=== PATIENT | male | born 1975 | race Caucasian/White ===

== ENCOUNTER 2018-11-26 16:43 | Emergency (ER) | payer MEDICAID ==
[~2018-11-26] VITALS: Ht 165.1 cm; Wt 97.1 kg
[2018-11-26 17:23] VITALS: Ht 165.1 cm; Wt 97.1 kg
[2018-11-26 20:01] VITALS: BP 167/112
== END 2018-11-26 20:01 | disposition home or self-care (01) ==
LOC: ED 16:43
DX: K04.7 Periapical abscess without sinus (principal); F17.210 Nicotine dependence, cigarettes, uncomplicated; I10 Essential (primary) hypertension; E11.9 Type 2 diabetes mellitus without complications
CPT/HCPCS: J1885

== ENCOUNTER 2019-02-14 07:39 | Emergency (ER) | payer MEDICAID ==
[~2019-02-14] VITALS: Ht 165.1 cm; Wt 99.3 kg
[2019-02-14 07:50] VITALS: Ht 165.1 cm; Wt 99.3 kg
[2019-02-14 10:36] LABS: BASOPHIL % 0.2 % (0-2); PLATELET COUNT 382 x10^3mcL (130-400); RED CELL DISTRIBUTION WIDTH 12.7 % (11.5-14.5)
[2019-02-14 11:22] LABS: ALKALINE PHOSPHATASE 109 U/L (46-116); ALT/SGPT 18 U/L (16-63); AST/SGOT 9 U/L (15-37); BILIRUBIN TOTAL 0.5 mg/dL (0.20-1.00); CARBON DIOXIDE 28.3 mmol/L (21-32); CHLORIDE SERUM 94 mmol/L (98-107); CREATININE SERUM 0.9 mg/dL (0.7-1.3); GFR1 > 60 mL/min; HDL CHOLESTEROL 49 mg/dL (40-60); LIPASE 90 IU/L (73-393); POTASSIUM SERUM 3.5 mmol/L (3.5-5.1); SODIUM SERUM 130 mmol/L (136-145); TOTAL PROTEIN, SERUM 7.7 g/dL (6.4-8.2)
[2019-02-14 11:36] LABS: ALBUMIN 2.6 g/dL (3.4-5.0); CHOLESTEROL 96 mg/dL (<200); GLUCOSE SERUM 490 mg/dL (74-106)
[2019-02-14 12:42] LABS: UA SPECIFIC GRAVITY 1.015 (1.005-1.035)
[2019-02-14 12:49] LABS: microscopic required? YES
[2019-02-14 12:50] LABS: urine erythrocyte TRACE (NEGATIVE)
[2019-02-14 15:16] VITALS: BP 156/97
== END 2019-02-14 15:16 | disposition home or self-care (01) ==
LOC: ED 07:39
PROVIDERS: Emergency Medicine
DX: L02.11 Cutaneous abscess of neck (principal); E11.65 Type 2 diabetes mellitus with hyperglycemia; D72.829 Elevated white blood cell count, unspecified; E46 Unspecified protein-calorie malnutrition; Z68.36 Body mass index [BMI] 36.0-36.9, adult; I10 Essential (primary) hypertension; E66.01 Morbid (severe) obesity due to excess calories
CPT/HCPCS: 36600; 82962; J0295; J1815; J1885; J3490; J7030; Q0092

== ENCOUNTER 2020-05-03 21:54 | Emergency (ER) | payer SELFPAY ==
[~2020-05-03] VITALS: Ht 165.1 cm; Wt 93.0 kg
[2020-05-03 22:06] VITALS: Ht 165.1 cm; Wt 93.0 kg
[2020-05-04 02:45] LABS: BASOPHIL % 1.4 % (0-2); PLATELET COUNT 299 x10^3mcL (130-400)
[2020-05-04 02:49] LABS: CALCIUM 7.9 mg/dL (8.5-10.1); CARBON DIOXIDE 30.9 mmol/L (21-32); CHLORIDE SERUM 94 mmol/L (98-107); CREATININE SERUM 1.1 mg/dL (0.7-1.3); GFR1 > 60 mL/min; GLUCOSE SERUM 276 mg/dL (74-106); POTASSIUM SERUM 3.4 mmol/L (3.5-5.1); SODIUM SERUM 131 mmol/L (136-145)
[2020-05-04 02:54] LABS: ALBUMIN 2.4 g/dL (3.4-5.0); ALKALINE PHOSPHATASE 62 U/L (46-116); ALT/SGPT 26 U/L (16-63); AST/SGOT 23 U/L (15-37); BILIRUBIN TOTAL 0.67 mg/dL (0.20-1.00); TOTAL PROTEIN, SERUM 7.1 g/dL (6.4-8.2)
[2020-05-04 05:46] VITALS: BP 139/70
== END 2020-05-04 05:47 | disposition home or self-care (01) ==
LOC: ED 21:54
PROVIDERS: Emergency Medicine
DX: G43.909 Migraine, unspecified, not intractable, without status migrainosus (principal); R11.0 Nausea; E11.65 Type 2 diabetes mellitus with hyperglycemia; I10 Essential (primary) hypertension
CPT/HCPCS: J0780; J1200